=== PATIENT | male | born 1990 | race Caucasian/White ===

== ENCOUNTER 2020-03-23 12:51 | Emergency (ER) | payer OTHER ==
[~2020-03-23] VITALS: Ht 167.6 cm; Wt 139.3 kg
[2020-03-23 12:51] VITALS: BP 149/82
[2020-03-23 14:30] VITALS: BP 149/82
== END 2020-03-23 14:30 | disposition home or self-care (01) ==
LOC: EDBD → MED 12:51
DX: U07.1 COVID-19 (principal); E11.9 Type 2 diabetes mellitus without complications; F41.9 Anxiety disorder, unspecified; D64.9 Anemia, unspecified
CPT/HCPCS: 99283; U0003

== ENCOUNTER 2020-03-27 20:25 | Emergency (ER) | payer OTHER ==
[~2020-03-27] VITALS: Ht 167.6 cm; Wt 139.3 kg
--- NOTE | 2020-03-27 20:25 | NUR ---
PT DEB BLS. TAKEN TO BED 3
[2020-03-27 20:40] VITALS: BP 120/67
--- NOTE | 2020-03-27 20:48 | NUR ---
29 YO MALE BIBA CO SUBSTERNAL CHEST PAIN SINCE TODAY. PT STATES THAT THE PAIN DOES NOT RADIATE ANYWHERE AND NO ARM PAIN AT THIS TIME. PT HAS HX OF DM AND HTM. PT IS COVID POSITIVE, RESULTS CAME IN TODAY.
--- NOTE | 2020-03-27 21:23 | NUR ---
EKG PERFORMED AT BEDSIDE
--- NOTE | 2020-03-27 21:26 | NUR ---
X-Ray at bedside.
--- NOTE | 2020-03-27 22:20 | NUR ---
Dr. Aaron examining patient.
[2020-03-27 23:09] VITALS: BP 120/67
--- NOTE | 2020-03-27 23:10 | NUR ---
Patient discharged with v/s stable. Written and verbal after care instructions given and explained. Patient alert, oriented and verbalized understanding of instructions. Ambulatory with steady gait. All questions addressed prior to discharge. ID band removed. Patient advised to follow up with PMD. Rx of MOTRIN AND PRILOSEC given. Patient educated on indication of medication including possible reaction and side effects. Opportunity to ask questions provided and answered.
== END 2020-03-27 23:10 | disposition home or self-care (01) ==
LOC: MED 20:25
DX: U07.1 COVID-19 (principal); R07.9 Chest pain, unspecified; E11.9 Type 2 diabetes mellitus without complications; I10 Essential (primary) hypertension; F17.210 Nicotine dependence, cigarettes, uncomplicated
CPT/HCPCS: 71045; 93005; 99283